=== PATIENT | male | born 1980 | race Caucasian/White ===

== ENCOUNTER 2018-10-11 18:10 | Emergency (ER) | payer OTHER, BC ==
[~2018-10-11] VITALS: Ht 175.3 cm; Wt 86.2 kg
[~2018-10-11 18:10] MED LIST: Amoxicillin; CLEOCIN HCL150 MG PO; PERCOCET 5-3251 EACH PO; VICODIN
[2018-10-11] MEDS ORDERED: CETIRIZINE HCL5 MG PO (18:22)
[2018-10-11] MEDS ORDERED: AUGMENTIN 875-1 EACH PO (18:30)
[2018-10-11 19:09] VITALS: BP 130/91
== END 2018-10-11 19:10 | disposition home or self-care (01) ==
LOC: M.ERS 18:10
DX: S51.852A Open bite of left forearm, initial encounter (principal); Y04.1XXA Assault by human bite, initial encounter; Y93.89 Activity, other specified; Y92.89 Other specified places as the place of occurrence of the external cause; Y99.8 Other external cause status